=== PATIENT | female | born 1995 | race Caucasian/White ===

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

== ENCOUNTER 2017-04-20 04:10 | Inpatient (IN) | payer OTHER ==
[2017-04-20] VITALS (29 sets, daily range): BP systolic 115–144; BP diastolic 55–83
[~2017-04-20] VITALS: Ht 182.9 cm; Wt 108.4 kg
--- NOTE | 2017-04-20 04:15 | NUR ---
COMES TO UNIT WITH QUESTIONABLE SROM AT 1800 ON 04/19/17. STATES SHE WAS LEAKING A LITTLE SO WAITED UNTIL CONTRACTIONS STARTED. EDC 04/16/17 WITH GESTATIONAL AGE OF 40.4 WEEKS. DENIES COMPLICATIONS DURING THIS . WILL PERFORM ROM AND FERN TESTS.
[2017-04-20 04:49] LABS: URINE BILIRUBIN - DIPSTICK NEGATIVE (NEGATIVE); URINE BLOOD DIPSTICK NEGATIVE (NEGATIVE); URINE COLOR YELLOW; URINE GLUCOSE - DIPSTICK NEGATIVE (NEGATIVE); URINE KETONE NEGATIVE (NEGATIVE); URINE LEUK ESTERASE TRACE (NEGATIVE); URINE NITRITE - DIPSTICK NEGATIVE (Negative); URINE PROTEIN - DIPSTICK NEGATIVE (NEG-TRACE); URINE UROBILINOGEN - DIPSTICK 0.2 E.U./dL (0.2)
[2017-04-20 04:52] LABS: BARBITURATES NEGATIVE (NEGATIVE); COCAINE NEGATIVE (NEGATIVE); METHADONE NEGATIVE (NEGATIVE); OXCYCODONE NEGATIVE (NEGATIVE); TETRAHYDROCANNABIONOL NEGATIVE (NEGATIVE); TRICYLIC ANTIDEPRESSANTS NEGATIVE (NEGATIVE)
[2017-04-20 04:53] LABS: URINE CLARITY CLEAR
--- NOTE | 2017-04-20 05:50 | NUR ---
WENT IN TO PATIENT'S ROOM TO PERFORM ADMISSION ASSESSMENTS AND IV INITIATION. EXPLAINED RATIONALE FOR SAME TO PATIENT, WHO WAS RESTING QUIETLY ON LT. SIDE,. EXPLAINED PROLONGED RUPTURE OF MEMBRANES, RISK OF INFECTION. AND INCREASED FHR. PATIENT BECAME DEFENSIVE, QUESTIONING IF IT REALLY NEEDED TO BE DONE, AND WISHING SHE HAD NOT COME IN UNTIL LATER. WAS ADVISED THAT IT WOULD HAVE BEEN MORE BENFICIAL TO COME IN WHEN RUPTURE OCCURRED AT 1800 LAST PM. PATIENT BECAME TEARY, STATING " I'M JUST SO TIRED". REFUSED IV START AT THIS TIME. REQUESTED TO BE ALLOWED TO REST.
--- NOTE | 2017-04-20 06:46 | NUR ---
BEDSIDE PT REPORT GIVEN TO KARY SHARPE RN ON PT STATUS. PT RESTING ON RT SIDE. NO COMPLAINTS.
--- NOTE | 2017-04-20 06:50 | NUR ---
REPORT RECEIVED BY LESTER.ATA. PT IS RESTING IN BED WITH S/O IN ROOM.
--- NOTE | 2017-04-20 07:02 | NUR ---
PT IS RESTING IN BED. PT STATED THAT SHE HAS NO PAIN AT THIS TIME. PALPATED ABDOMEN AND CONTRACTIONS ARE MILD. PT DENIES ANY NEEDS AT THIS TIME. CALL LIGHT IN REACH. S/O IN ROOM.
--- NOTE | 2017-04-20 08:10 | NUR ---
0745: DR. SANTAMARIA AT [facility]. DISCUSSED PLAN OF CARE WITH PT AND PT VERBALIZED UNDERSTANDING. 0810: SVE DONE BY .
[2017-04-20 08:32] LABS: HEMATOCRIT 36.5 % (37.0-47.0); HEMOGLOBIN 12.3 g/dl (12.0-16.0); IMMATURE GRANULOCYTES 0.5 % (0.0-1.0); MEAN CELL VOLUME 83.7 fL CALC (80.0-100.0); MEAN CORPUSCULAR HGB 28.2 pG CALC (26.0-32.0); MEAN CORPUSCULAR HGB CONC 33.7 g/L CALC (32.0-36.0); NEUT# 8.53 thou/uL (2.00-7.15); RED BLOOD COUNT 4.36 mill/uL (4.20-5.60); RED CELL DISTRI WIDTH 13.4 % (11.5-15.5)
--- NOTE | 2017-04-20 09:24 | NUR ---
0910: PT IS STANDING IN THE SIDE OF THE BED. 0920: PT TO THE BATHROOM TO VOID. 0924: PITOCIN STARTED AT 2MU/MIN PER ORDERS. PT VERBALIZED UNDERSTANDING.
[2017-04-20 09:41] LABS: ALBUMIN 3.9 g/dL (3.2-5.0); ALKALINE PHOSPHATASE 225 u/l (38-126); ANION GAP 17 (6-22 (CALC)); BILIRUBIN, TOTAL 0.5 mg/dL (0.0-1.4); BUN 8 mg/dL (8-21); BUN/CREATININE RATIO 17 (12-20 (CALC)); CALCIUM 9.9 mg/dL (8.4-10.2); CARBON DIOXIDE 19 mmol/l (22-30); CHLORIDE 106 mmol/l (95-108); CREATININE 0.5 mg/dL (0.5-1.0); GFR > 60 ML/MIN (>=60 (CALC)); GFR FOR AFR.AMER. > 60 ML/MIN (>=60 (CALC)); GLUCOSE 97 mg/dL (70-106); SGOT/AST 16 u/l (14-36); SGPT/ALT 24 u/l (9-52); SODIUM 138 mmol/l (137-146); TOTAL PROTEIN 6.8 g/dL (6.3-8.2)
--- NOTE | 2017-04-20 10:48 | NUR ---
[id number]: FHR 150 WITH MODERATE VARIABILITY , ACCEL PRESENT, NO DECEL, AND CONTRACTIONS ARE 2-4 MIN. PALPATED ABDOMEN AND CONTRACTIONS ARE MILD.
--- NOTE | 2017-04-20 11:16 | NUR ---
PT IS STANDING IN THE SIDE OF THE BED MOVING SIDE TO SIDE. PT STATED THAT PAIN IS 4/10. PT DENIES ANY NEEDS AT THIS TIME. S/O IN ROOM
--- NOTE | 2017-04-20 11:23 | NUR ---
SPOKE TO BOTH PARENTS AT LENGTH ABOUT BENEFITS/RISKS OF EYE PROPHYLAXIS AND VIT K. MOTHER FEELS THEY ARE UNNECESSARY AND WOULD LIKE TO DECLINE. GIVEN INFORMATION ON BOTH. MOTHER DID HAVE A NEGATIVE GC/CHLAMYDIA CULTURE ON 03/23/17. PARENTS VERBALIZE UNDERSTANDING ABOUT THE RATIONALE FOR THE RECOMMENDATION FOR ALL NEWBORNS AND ARE AWARE OF THE RESEARCH SUPPORTING VITAMIN K. WILL OBTAIN PACKAGE INSERT FOR PARENTS ON VITAMIN K.
--- NOTE | 2017-04-20 12:15 | NUR ---
PITOCIN IS 8MU/MIN. PT IS BACK IN BED FROM STANDING. PT DENIES ANY NEEDS AT THIS TIME. S/O IN ROOM.
--- NOTE | 2017-04-20 12:52 | NUR ---
READJUSTED EFM DUE TO MOVEMENT. PT STATED PAIN IS IN LOWER ABDOMEN /. PT DOES NOT WANT PAIN MEDICATION AT THIS TIME. PT DENIES ANY NEEDS.
--- NOTE | 2017-04-20 13:35 | NUR ---
DR. SANTAMARIA AT BEDSIDE. SVE DONE BY .
--- NOTE | 2017-04-20 14:12 | NUR ---
PT OOB TO VOID. THEN PT BACK IN BED. PT STATED THAT SHE HAD A SMALL BM.
--- NOTE | 2017-04-20 15:44 | NUR ---
1503: FHR 145, BUT DIFFICULT TO TRACE FHR DUE TO MOVEMENT. READJUSTED EFM BUT UNABLE TO GET FHR DUE TO MOVEMENT. PT IS IN HER HANDS AND KNEES POSTION IN BED. CONTRACTIONS ARE 2- 3 MIN APART. 1510: SHELDON APPLIED TO TRACE FHR. 1544: UNABLE TO GET FHR TRACE WITH SHELDON AND EFM APPLIED NOW TRACING. PT TAKES DEEP BREATHS WITH EACH CONTRACTION. PT DENIES ANY NEEDS AT THIS TIME. S/O IN ROOM.
--- NOTE | 2017-04-20 16:30 | NUR ---
BOLUS GIVEN FOR DECEL VARIABLE PT IS SITTING IN BIRTHING BALL AND MOVES SIDE TO SIDE. PT DENIES ANY OTHER NEEDS AT THIS TIME.
--- NOTE | 2017-04-20 17:15 | NUR ---
165: PT OOB TO VOID. 1709: SVE DONE 1711: CALLED DR. SANTAMARIA RE: PT SVE. STATED HE IS COMING. 1714: DIFFCULT TO TRACE FHR DUE TO MOVEMENT. FHR 150 WITH MODERATE VARIABILITY, ACCEL PRESENT. PT MOVED TO BR#1 VIA WHEELCHAIR ANS S/O AT SIDE.
--- NOTE | 2017-04-20 17:55 | NUR ---
1721: DR. SANTAMARIA AT BEDSIDE. SVE DONE BY MD AND MD STATED PT IS READY. PT IS STARTING TO PUSH. NONREBREATHER MASK GIVEN 10L/MIN. 1750: PT TAKES DEEP BREATHS AND THEN PUSHES. FHR 145, WITH MODERATE VARIABILITY, ACCEL PRESENT, VARIABLE DECEL, AND CONTRACTIONS ARE 2-3 MIN APART. EFM READJUSTED TO TRACE FHR. 175: A MALE BORN BY DR. SANTAMARIA. 1755: PLACENTA OUT.
[2017-04-21] VITALS: BP 118/70
[2017-04-21 05:00] VITALS: BP 112/58
[2017-04-21 05:25] LABS: HEMATOCRIT 32.6 % (37.0-47.0); IMMATURE GRANULOCYTES 0.5 % (0.0-1.0); MEAN CELL VOLUME 83.8 fL CALC (80.0-100.0); MEAN CORPUSCULAR HGB 28.3 pG CALC (26.0-32.0); MEAN CORPUSCULAR HGB CONC 33.7 g/L CALC (32.0-36.0); NEUT# 8.72 thou/uL (2.00-7.15); RED BLOOD COUNT 3.89 mill/uL (4.20-5.60); RED CELL DISTRI WIDTH 13.4 % (11.5-15.5)
--- NOTE | 2017-04-21 06:39 | NUR ---
0600 PT ASLEEP WITH FAMILY IN ROOM. ASLEEP IN OPEN CRIB. NO DISTRESS NOTED.
--- NOTE | 2017-04-21 07:30 | NUR ---
PT AWAKE, S/O IN ROOM.
--- NOTE | 2017-04-21 09:00 | NUR ---
SITS QUIETLY IN BED, DENIES PAIN.
--- NOTE | 2017-04-21 12:00 | NUR ---
SITS IN BED, TALKS WITH VISITORS.
--- NOTE | 2017-04-21 14:15 | NUR ---
PT SHOWERED. SITS IN BED S/O AT SIDE.
[2017-04-21 15:35] VITALS: BP 127/66
--- NOTE | 2017-04-21 18:58 | NUR ---
REPORT TO ONCOMING NURSE, TO PT ROOM.
--- NOTE | 2017-04-21 19:00 | NUR ---
REPORT ON PT. RECEIVED FROM Eliane LEDEZMA RN. PT. RELAXING WITH IN BED AND FAMILY MEMBERS VISITING AT THIS TIME.PT. DENIES DISCOMFORT.
[2017-04-21 21:48] VITALS: BP 122/57
--- NOTE | 2017-04-22 07:20 | NUR ---
PT AWAKE, RESTING IN BED, HOLDING INFANT, POSITIVE BONDING. DENIES ANY NEEDS.
[2017-04-22 08:20] VITALS: BP 125/48
--- NOTE | 2017-04-22 08:20 | NUR ---
PT SITTING UP, HOLDING INFANT, POSITIVE BONDING. VS AND ASSESSMENT DONE, STABLE. DENIES ANY PAIN. DR. SANTAMARIA IN EARLIER AND DISCHARGED PT. DISCHARGE TEACHING DONE WITH PT FOR BOTH PT AND ; ALL QUESTIONS ANSWERED, PT VERBALIZED UNDERSTANDING. PT REFUSED VACCINES. RX FOR MOTRIN GIVEN.
[2017-04-22] MEDS ORDERED: IBUPROFEN600 MG PO (08:58)
--- NOTE | 2017-04-22 11:30 | NUR ---
PT SITTING UP IN BED, DENIES ANY PAIN OR NEEDS AT THIS TIME.
--- NOTE | 2017-04-22 18:15 | NUR ---
PT DISCHARGED HOME, IN STABLE CONDITION, VIA WHEELCHAIR, WITH SIGNIFICANT OTHER.
== END 2017-04-22 18:15 | disposition home or self-care (01) | DRG 775 ==
LOC: OBOP 04:10 → EDSTATUS 04:14 → OBOP 04:14 → OB 04:14 → OBOP 05:59 → OB 06:00
PROVIDERS: ADMIT Obstetrics & Gynecology; ATTEND Obstetrics & Gynecology
PROC: 10D07Z6 Extraction of Products of Conception, Vacuum, Via Natural or Artificial Opening (ICD-10-PCS; principal; 2017-04-20)
PROC: 0HQ9XZZ Repair Perineum Skin, External Approach (ICD-10-PCS; 2017-04-20)
DX: O42.02 Full-term premature rupture of membranes, onset of labor within 24 hours of rupture (principal); O64.0XX0 Obstructed labor due to incomplete rotation of fetal head, not applicable or unspecified; O62.0 Primary inadequate contractions; O70.0 First degree perineal laceration during delivery; O76 Abnormality in fetal heart rate and rhythm complicating labor and delivery; Z3A.40 40 weeks gestation of pregnancy; Z37.0 Single live birth

== ENCOUNTER 2018-06-16 10:57 | Emergency (ER) | payer OTHER ==
[~2018-06-16] VITALS: Ht 177.8 cm; Wt 113.6 kg
[~2018-06-16 10:57] MED LIST changes: +IBUPROFEN600 MG PO
[2018-06-16 11:00] VITALS: BP 138/67
[2018-06-16] MEDS ORDERED: AMOXICILLIN875 MG PO (11:21)
== END 2018-06-16 11:35 | disposition home or self-care (01) ==
LOC: ED 10:57
DX: O99.519 Diseases of the respiratory system complicating pregnancy, unspecified trimester (principal); J02.9 Acute pharyngitis, unspecified; J32.9 Chronic sinusitis, unspecified; Z3A.00 Weeks of gestation of pregnancy not specified

== ENCOUNTER 2018-10-18 19:58 | Emergency (ER) | payer OTHER ==
[~2018-10-18] VITALS: Ht 177.8 cm; Wt 109.0 kg
[~2018-10-18 19:58] MED LIST changes: +AMOXICILLIN875 MG PO
[2018-10-18 21:18] VITALS: BP 139/74
== END 2018-10-18 21:20 | disposition home or self-care (01) ==
LOC: ED 19:58
DX: S50.311A Abrasion of right elbow, initial encounter (principal); W55.12XA Struck by horse, initial encounter; Y93.K9 Activity, other involving animal care; Y92.009 Unspecified place in unspecified non-institutional (private) residence as the place of occurrence of the external cause; Z33.1 Pregnant state, incidental; Z28.21 Immunization not carried out because of patient refusal

== ENCOUNTER 2020-02-10 09:43 | Emergency (ER) | payer OTHER ==
[~2020-02-10] VITALS: Ht 177.8 cm; Wt 100.0 kg
[2020-02-10 12:46] VITALS: BP 132/61
== END 2020-02-10 12:46 | disposition home or self-care (01) ==
LOC: ED 09:43
DX: S93.402A Sprain of unspecified ligament of left ankle, initial encounter (principal); S93.401A Sprain of unspecified ligament of right ankle, initial encounter; X50.0XXA Overexertion from strenuous movement or load, initial encounter; Y93.89 Activity, other specified